=== PATIENT | male | born 1950 | race Caucasian/White ===

== ENCOUNTER 2018-03-13 10:17 | Outpatient (RCR) | payer OTHER ==
[~2018-03-13 10:17] MED LIST: CARDI-OMEGA1000 MG PO; DULCOLAX5 MG PO; NATURE'S BLEND400 IU PO; NORCO 325 MG-51 TAB PO; PROSCAR 5MG5 MG PO; ZOFRAN 4MG T4 MG/TAB PO
== END 2018-06-11 | disposition home or self-care (01) ==
LOC: WSOH
DX: L23.7 Allergic contact dermatitis due to plants, except food (principal); R21 Rash and other nonspecific skin eruption; Y92.59 Other trade areas as the place of occurrence of the external cause; Y99.0 Civilian activity done for income or pay; Z79.899 Other long term (current) drug therapy